=== PATIENT | female | born 1965 | race Hispanic/Latino ===

== ENCOUNTER → 2020-09-15 | Outpatient (CLI) | payer BC ==
[~2020-09-15] MED LIST: DULO60CA44 PO; LOSA25TA41 PO; PREM625 PO; [UNRECOGNIZED DRUG - CODE] PO
== END | disposition home or self-care (01) ==
LOC: SLP 20:19
PROVIDERS: ATTEND Family Medicine
DX: G47.33 Obstructive sleep apnea (adult) (pediatric) (principal)
CPT/HCPCS: 95810

== ENCOUNTER → 2020-09-23 | Outpatient (CLI) | payer BC | END | disposition home or self-care (01) | LOC: SLP 20:26 | PROVIDERS: ATTEND Family Medicine | DX: G47.33 Obstructive sleep apnea (adult) (pediatric) (principal) | CPT/HCPCS: 95811 ==

== ENCOUNTER → 2021-10-04 | Outpatient (CLI) | payer BC ==
[~2021-10-04] MED LIST changes: -DULO60CA44 PO; +DULO60CA45 PO
== END | disposition home or self-care (01) ==
LOC: RAH 14:49
PROVIDERS: ATTEND Otolaryngology Plastic Surgery within the Head & Neck
DX: J32.8 Other chronic sinusitis (principal); J34.89 Other specified disorders of nose and nasal sinuses
CPT/HCPCS: 70486

== ENCOUNTER 2024-01-14 09:22 | Emergency (ER) | payer BC ==
[~2024-01-14] VITALS: Ht 147.3 cm; Wt 70.3 kg
[2024-01-14 09:51] LABS: BASOPHILS # (AUTO) 0.04 K/uL (0.00-0.20); BASOPHILS % (AUTO) 0.4 % (0.0-5.0); EOSINOPHILS # (AUTO) 0.18 K/uL (0.00-0.70); HEMATOCRIT 39.3 % (36-48); IMMATURE GRANULOCYTE ABSOLUTE 0.06 K/uL (0-1); LYMPHOCYTES # (AUTO) 2.3 K/uL (1.0-4.8); LYMPHOCYTES % (AUTO) 26.1 % (21.0-51.0); MEAN CORPUSCULAR HEMOGLOBIN 30.8 pg (27.0-33.0); MEAN CORPUSCULAR HGB CONC 33.8 g/dL (32.0-36.0); MONOCYTES # (AUTO) 0.6 K/uL (0.1-1.0); MONOCYTES % (AUTO) 6.3 % (3.0-13.0); NEUTROPHILS # (AUTO) 5.8 K/uL (1.8-7.7); NEUTROPHILS % (AUTO) 64.5 % (40.0-77.0); PLATELET COUNT (AUTO) 253 K/uL (130-400); RED BLOOD CELL COUNT(AUTO) 4.32 MIL/uL (4.00-5.50); RED CELL DISTRIBUTION WIDTH 12.7 % (11.0-15.5); WHITE BLOOD COUNT (AUTO) 8.9 K/uL (4.8-10.8)
[2024-01-14 09:58] LABS: ADD UA MICROSCOPIC YES; APPEARANCE,URINE CLEAR (CLEAR); BILIRUBIN,URINE NEGATIVE (NEGATIVE); COLOR,URINE LIGHT-YELLOW (YELLOW); GLUCOSE, URINE (UA) NEGATIVE (NEGATIVE); KETONES,URINE NEGATIVE (NEGATIVE); LEUKOCYTE ESTERASE ,URINE NEGATIVE Leu/uL (NEGATIVE); NITRATE,URINE NEGATIVE (NEGATIVE); PROTEIN,URINE NEGATIVE (NEGATIVE); UROBILINOGEN,URINE 0.2 mg/dL (0.2-1.0)
[2024-01-14 09:59] LABS: CREATININE 0.8 mg/dL (0.5-1.0); POTASSIUM 4.2 mmol/L (3.5-5.1)
[2024-01-14 10:03] LABS: ALBUMIN 3.7 g/dL (3.5-5.0); BILIRUBIN,TOTAL 0.6 mg/dL (0.2-1.0); TOTAL PROTEIN, SERUM 7.2 g/dL (6.0-8.3)
[2024-01-14 10:08] LABS: SQUAMOUS EPITHELIAL CELL,UR RARE /HPF (0-2); WBC,URINE 0-1 /HPF (0-1)
[2024-01-14] MEDS: ONDANSETRON 4MG INJ IVP ONE (10:13)
[2024-01-14] MEDS: 0.9%NACL 1000ML 1,000 ML IV SCH (10:13)
[2024-01-14] MEDS: MORPHINE 4 MG SYG IVP ONE (10:13)
[2024-01-14] MEDS ORDERED: FAMO20TA8 PO (10:58)
[2024-01-14] MEDS ORDERED: ONDA4TAB10 PO (10:58)
[2024-01-14] MEDS: LIDOCAINE HCL 2% VISCOUS 15 ML UDCUP PO ONE (11:05)
[2024-01-14] MEDS: MAG/ALUM/SIMETH 30 ML UDCUP PO ONE (11:05)
[2024-01-14 11:25] VITALS: BP 154/73; PULSE 69; RESP 18; O2SAT 99
== END 2024-01-14 11:42 | disposition home or self-care (01) ==
LOC: EDH 09:22
DX: K29.70 Gastritis, unspecified, without bleeding (principal); E11.9 Type 2 diabetes mellitus without complications; E78.00 Pure hypercholesterolemia, unspecified; I10 Essential (primary) hypertension
CPT/HCPCS: 99284; 96374; 76705; 96361; 96375; 80053; 83690; 85025; 81001; 36415; J7030; J2405; J2270